=== PATIENT | female | born 1995 | race Asian ===

== ENCOUNTER 2017-10-04 15:02 | Emergency (ER) | payer SELFPAY ==
[~2017-10-04] VITALS: Ht 160 cm; Wt 86.2 kg
[2017-10-04 15:08] VITALS: Ht 160 cm; Wt 86.2 kg
[2017-10-04 17:15] LABS: PLATELET COUNT 343 x10^3mcL (130-400)
[2017-10-04 17:21] LABS: BASOPHIL % 2.1 % (0-2); RED CELL DISTRIBUTION WIDTH 17.4 % (11.5-14.5)
[2017-10-04 17:43] VITALS: BP 120/68
== END 2017-10-04 17:44 | disposition home or self-care (01) ==
LOC: ED 15:02
PROVIDERS: Emergency Medicine
DX: D25.9 Leiomyoma of uterus, unspecified (principal); D53.9 Nutritional anemia, unspecified
CPT/HCPCS: 36415; Q0092

== ENCOUNTER 2018-01-28 14:49 | Emergency (ER) | payer OTHER ==
[~2018-01-28] VITALS: Ht 154.9 cm; Wt 83.0 kg
[2018-01-28 15:09] VITALS: Ht 154.9 cm; Wt 83.0 kg
[2018-01-28 20:33] VITALS: BP 130/78
== END 2018-01-28 20:33 | disposition home or self-care (01) ==
LOC: ED 14:49
DX: M25.512 Pain in left shoulder (principal)
CPT/HCPCS: Q0092